=== PATIENT | male | born 1950 | race Caucasian/White ===

== ENCOUNTER 2020-03-26 09:32 | Outpatient (CLI) | payer MEDICARE | END 2020-03-26 23:59 | disposition home or self-care (01) | LOC: CFH 09:32 | PROVIDERS: ATTEND Internal Medicine Cardiovascular Disease | DX: I08.8 Other rheumatic multiple valve diseases (principal); I10 Essential (primary) hypertension; E78.5 Hyperlipidemia, unspecified; I25.10 Atherosclerotic heart disease of native coronary artery without angina pectoris; Z95.0 Presence of cardiac pacemaker | CPT/HCPCS: 93306 ==

== ENCOUNTER 2020-05-01 12:19 | Outpatient (CLI) | payer MEDICARE ==
[2020-05-01] MEDS ORDERED: LIDOCAINE 1%, 10ML ONE (12:34)
== END 2020-05-01 23:59 | disposition home or self-care (01) ==
LOC: RAD 12:19
PROVIDERS: ATTEND Nurse Practitioner
DX: E04.1 Nontoxic single thyroid nodule (principal)
CPT/HCPCS: 10005; 88173

== ENCOUNTER → 2021-01-24 | Outpatient (CLI) | payer MEDICARE ==
[~2021-01-24] MED LIST: OMNIPAQUE 350 MG/ML, 100ML BOTTLE ONE
== END | disposition home or self-care (01) ==
LOC: RAD 09:37
PROVIDERS: ATTEND Urology
DX: C61 Malignant neoplasm of prostate (principal); K57.30 Diverticulosis of large intestine without perforation or abscess without bleeding; Z90.49 Acquired absence of other specified parts of digestive tract
CPT/HCPCS: 36415; 74177; 78306; 82565; A9503; Q9967